=== PATIENT | male | born 1970 | race Hispanic/Latino ===

== ENCOUNTER 2017-08-29 20:30 | Emergency (ER) | payer BC ==
[~2017-08-29] VITALS: Ht 185.4 cm; Wt 130.0 kg
[~2017-08-29 20:30] MED LIST: ASPIR 8181 M1 PO; Ecotrin PO; KETOROLAC TROME10 MG; NAPROXEN500 MG PO; OMEPRAZOLE40 M1 PO; TORADOL10 MG PO
[2017-08-29 23:54] LABS: HEMATOCRIT 41.8 % (38.0-50.0); HEMOGLOBIN 14.5 G/DL (12.5-16.6); MCH 31.1 PG (29.0-34.0); MCHC 34.7 G/DL (30.0-36.0); MCV 89.7 FL (86-99); PLATELET COUNT 204 K/uL (156-360); RBC DIS.WIDTH-CV 11.9 % (11.8-14.6); RBC DIS.WIDTH-SD 38.8 % (39-53); RED BLOOD COUNT 4.66 M/uL (4.00-5.50); WHITE BLOOD COUNT 6.8 K/uL (4.1-10.2)
[2017-08-30 00:11] LABS: CHLORIDE 104 mEq/L (99-109); SODIUM 138 mEq/L (136-147)
[2017-08-30 00:13] LABS: GLUCOSE 125 mg/dL (70-99)
[2017-08-30 00:17] LABS: CREATININE 1.2 mg/dL (0.6-1.3); GFR ESTIMATE (CALCULATED) > 59 mL/min/ (58.99-99999)
[2017-08-30 00:18] LABS: UREA NITROGEN (BUN) 22 mg/dL (9-23)
[2017-08-30] MEDS ORDERED: KEFLEX500 MG PO (02:33)
[2017-08-30 02:49] VITALS: BP 159/102
== END 2017-08-30 02:50 | disposition home or self-care (01) ==
LOC: EME 20:30
PROVIDERS: Emergency Medicine
PROC: 0H9KXZZ Drainage of Right Lower Leg Skin, External Approach (ICD-10-PCS; principal; 2017-08-30)
DX: L02.415 Cutaneous abscess of right lower limb (principal); L03.115 Cellulitis of right lower limb; M79.661 Pain in right lower leg
CPT/HCPCS: 80048; 85027; 93971; 99281; 99284